=== PATIENT | female | born 1980 ===

== ENCOUNTER 2018-01-15 10:03 | Outpatient (CLI) | payer OTHER | END 2018-01-15 11:58 | disposition home or self-care (01) | LOC: SONOGRAMA 10:03 | DX: M70.62 Trochanteric bursitis, left hip (principal) ==

== ENCOUNTER 2021-09-19 11:36 | Emergency (ER) | payer OTHER ==
[~2021-09-19] VITALS: Ht 180.3 cm; Wt 90.7 kg
== END 2021-09-19 14:41 | disposition home or self-care (01) ==
LOC: ER 11:36
DX: K29.60 Other gastritis without bleeding (principal); Z20.822 Contact with and (suspected) exposure to COVID-19